=== PATIENT | male | born 1990 | race African-American/Black ===

== ENCOUNTER 2024-07-29 13:50 | Emergency (ER) | payer MEDICAID ==
[~2024-07-29] VITALS: Ht 180.3 cm; Wt 95.2 kg
[2024-07-29 13:56] VITALS: BP 124/65; PULSE 90; RESP 16; TEMP 98.2; O2SAT 99
[2024-07-29] MEDS ORDERED: SULF1TAB48 MT (14:37)
[2024-07-29] MEDS ORDERED: NAPR-1176 MT (14:37)
[2024-07-29] MEDS: KETOROLAC 30MG/ML VIAL IM ONE (15:08)
== END 2024-07-29 15:08 | disposition home or self-care (01) ==
LOC: ER 14:00
DX: L02.415 Cutaneous abscess of right lower limb (principal); Z79.1 Long term (current) use of non-steroidal anti-inflammatories (NSAID)
CPT/HCPCS: 10060; 99284